=== PATIENT | female | born 1980 | race Caucasian/White ===

== ENCOUNTER 2025-05-30 12:35 | Emergency (ER) | payer OTHER, SELFPAY ==
[2025-05-30] VITALS (9 sets, daily range): BP systolic 126–189; BP diastolic 67–116; PULSE 62–103; RESP 12–24; TEMP 36.6–37.1; O2SAT 96–100; BMI 24.0
--- NOTE | 2025-05-30 12:55 | ED_ITS ---
<Statement entered by Mauri Rios MD - 05/31/25 04:20> I was consulted by the NIC, and we discussed the complexity of the problems being addressed. I approve the treatment and management plan for this patient's care in the emergency department, thus performing a substantive portion of the medical decision making. Mauri Rios MD Discharge Plan Disposition Patient Disposition: Home, Self-Care Condition: Good Referrals Follow up/Referrals: Provider,Referral, MD [Primary Care Provider, Medical] - See instructions Activity Restrictions/Add. Instructions Additional Instructions/Restrictions: You were evaluated on an emergency basis. It is very important that you follow- up with your primary care provider and any specialist who we discussed within the next 2 days in order to better assess your health more comprehensively. For example, incidental findings on imaging or laboratory results that were performed today may be discovered, which do not require immediate medical care, but may impact your health in the future. If your symptoms worsen or persist, please return to the emergency department immediately for reassessment. Take all medications as prescribed. In queue for allowing me to participate in your health care, and I hope you feel better soon. Clinical Impressions Clinical Impression: Manic behavior Print Language Print Language: Haitian Discharge ED Provider: Ari Taylor General Adult HPI <Brandy Cornelius - Last Filed: 05/30/25 16:50> General Chief complaint: Anxiety Stated complaint: Chest Pain Time Seen by Provider: 05/30/25 12:41 History of Present Illness HPI narrative: 44-year-old female presents the emergency department with multiple complaints. Patient reports that she recently moved back to this area from [place] and as she was unpacking today she was concerned that her shoes felt different. She states that she then noticed that she was having numbness and tingling in her bilateral upper and lower extremities. Was also experiencing mild chest pain. She reports that she has been prescribed Xanax in the past and admits that she has probably been overusing them and has run out over the past week. Related Data Allergies Allergy/AdvReac Type Severity Reaction Status Date / Time Antihistamines - Alkylamine Allergy Hives Verified 05/30/25 13:17 codeine Allergy Hives Verified 05/30/25 13:15 morphine Allergy Anaphylaxis Verified 05/30/25 13:16 PFSH <Brandy Cornelius - Last Filed: 05/30/25 16:50> [facility] Disclaimer: The information contained in this section may have been updated after the patient was seen, as this information can be updated by other users. Social History (Updated 05/30/25 @ 15:10 by Ari Taylor MD) Smoking Status: Former smoker alcohol intake: never current occupational status: other Travel in the last 8 weeks?: None Have you lived/traveled outside [place] in past 30 days?: No Contact w/someone who lives/traveled outside US past 30 days?: No Exposure to someone with infectious disease in past 14 days?: No Do you have a fever (greater than 100.4 F or 38 C)?: No Have you tested positive for COVID-19?: No Exposed to someone with COVID-19 in past 14 days?: No Do you have a sore throat?: No Do you have a cough?: No Do you have any weakness?: No Do you have any diarrhea?: No Are you experiencing any unusual bleeding?: No Do you have any muscle aches/pain?: No Do you have any abdominal pain?: No Are you experiencing loss of taste or smell?: No <Brandy Cornelius - Last Filed: 05/30/25 16:50> Cardiovascular Cardiovascular: Reports chest pain Musculoskeletal Musculoskeletal: Reports numbness and Reports tingling Neurologic Neurologic: Reports numbness and Reports tingling <Ari Taylor MD - Last Filed: 05/30/25 15:10> ROS Obtained: Yes Systems reviewed as appropriate & no additional complaints except as documented Physical Exam <Brandy Cornelius - Last Filed: 05/30/25 16:50> Narrative Physical exam: General: Awake, aware HEENT: Normocephalic, no evidence of trauma CV: RRR, no murmurs, rubs, or gallops Pulm: CTA bilaterally with no rhonchi, rales, wheezes ABD: Nontender, no swelling, guarding, or rebound tenderness Psychiatric Psychiatric exam: Present manic and other (Denies suicidal or homicidal ideation. Patient with flight of ideas and is difficult to carry on conversation with linear thought process.) <Ari Taylor MD - Last Filed: 05/30/25 15:10> General General appearance: alert Respiratory Respiratory exam: Absent respiratory distress Cardiovascular Cardiovascular exam: Present regular rate Neurological Exam Neurological exam: Present alert Medical Decision Making <Brandy Cornelius - Last Filed: 05/30/25 16:50> Medical Records Screening: Per USPSTF and CDC recommendations, given the prevalence of disease in our region, it is our hospital?s policy to screen for HIV and viral Hepatitis for all patients aged 18 and over and those with ongoing risk factors. Vital Signs: 05/30/25 12:54 05/30/25 13:00 05/30/25 13:30 Temperature 97.9 F Temperature Source Oral Pulse Rate 62 Pulse Rate [Right Radial] 103 H Respiratory Rate 19 21 Blood Pressure 167/110 H 149/105 H Blood Pressure [Right Arm] 189/116 H Blood Pressure Mean 119 Blood Pressure Mean [Right Arm] 140 Blood Pressure Source Blood Pressure Source [Right Arm] Automatic Cuff Blood Pressure Position Blood Pressure Position [Right Arm] Sitting 02 Sat by Pulse Oximetry 99 100 Oxygen Delivery Method Room Air 05/30/25 13:30 05/30/25 13:45 05/30/25 14:12 Temperature Temperature Source Pulse Rate 91 H 87 101 H Pulse Rate [Right Radial] Respiratory Rate 18 21 18 Blood Pressure 149/105 H 157/114 H Blood Pressure [Right Arm] Blood Pressure Mean 129 Blood Pressure Mean [Right Arm] Blood Pressure Source Blood Pressure Source [Right Arm] Blood Pressure Position Blood Pressure Position [Right Arm] 02 Sat by Pulse Oximetry 98 98 97 Oxygen Delivery Method 05/30/25 14:31 05/30/25 15:01 05/30/25 15:30 Temperature Temperature Source Pulse Rate 93 H 65 77 Pulse Rate [Right Radial] Respiratory Rate 24 13 12 Blood Pressure 147/116 H 148/92 H 126/87 Blood Pressure [Right Arm] Blood Pressure Mean 127 Blood Pressure Mean [Right Arm] Blood Pressure Source Blood Pressure Source [Right Arm] Blood Pressure Position Blood Pressure Position [Right Arm] 02 Sat by Pulse Oximetry 96 97 99 Oxygen Delivery Method 05/30/25 16:54 Temperature 98.8 F Temperature Source Oral Pulse Rate 64 Pulse Rate [Right Radial] Respiratory Rate 18 Blood Pressure 126/67 Blood Pressure [Right Arm] Blood Pressure Mean Blood Pressure Mean [Right Arm] Blood Pressure Source Automatic Cuff Blood Pressure Source [Right Arm] Blood Pressure Position Sitting Blood Pressure Position [Right Arm] 02 Sat by Pulse Oximetry Oxygen Delivery Method Room Air Lab Data Lab Results 05/30/25 13:00: WBC 7.5, RBC 4.91, Hgb 14.8, Hct 43.4, MCV 88.4, MCH 30.1, MCHC 34.1, RDW 13.3, Plt Count 326, MPV 10.1, Neut % (Auto) 65.7, Lymph % (Auto) 23.8, Lamb % (Auto) 8.5, Eos % (Auto) 1.3, Baso % (Auto) 0.4, Neut # (Auto) 5.0, Lymph # (Auto) 1.8, Lamb # (Auto) 0.6, Eos # (Auto) 0.1, Baso # (Auto) 0.0, D- Dimer 0.84 H, Sodium 140, Potassium 3.4 L, Chloride 104, Carbon Dioxide 24, A nion Gap 15.4 H, BUN 11, Creatinine 1.00, Estimated Creat Clear 76, Estimated GFR 60, Est GFR ( Amer) 73, Glucose 107 H, Calcium 10.4 H, Magnesium 1.9, Total Bilirubin 0.9, AST 45 H, ALT 25, Alkaline Phosphatase 91, Troponin I < 0.01, Total Protein 8.7 H, Albumin 5.2 H, Globulin 3.5 H, Albumin/Globulin Ratio 1.5, Lipase 69, HCG, Quant < 2 05/30/25 13:20: Urine Color Yellow, Urine Appearance Clear, Urine pH 8.0, Ur Specific [place] 1.010, Urine Protein Negative, Urine Glucose (UA) Negative, Urine Ketones Negative, Urine Blood Negative, Urine Nitrate Negative, Urine Bilirubin Negative, Urine Urobilinogen 1.0, Ur Leukocyte Esterase Negative, Urine RBC None, Urine WBC 5-10, Ur Squamous Epith Cells 10-20, Urine Bacteria 2+, Urine Opiates Screen Negative, Urine Methadone Screen Negative, Ur Barbituates Screen Negative, Ur Phencyclidine Scrn Negative, Ur Amphetamines Screen Negative, U Benzodiazepines Scrn Negative, Urine Cocaine Screen Negative, U Marijuana (THC) Screen Positive H 05/30/25 15:37: Troponin I < 0.01 05/30/25 13:00 05/30/25 13:00 Orders (Tests/Meds): ED MEDICATIONS Discontinued Medications Generic Name Dose Route Start Last Admin Trade Name Freq PRN Reason Stop Dose Admin Diazepam 5 mg 05/30/25 14:50 05/30/25 14:59 Diazepam 10mg/2ml Syringe IV 05/30/25 14:51 5 mg ONCE ONE Administration Sodium Chloride 1,000 mls @ 999 mls/hr 05/30/25 13:06 05/30/25 16:31 Sod Chlor 0.9% 1000ml Bag IV 05/30/25 14:06 Infused .Q1H1M ONE Infusion Iopamidol 80 ml 05/30/25 15:08 05/30/25 15:09 Iopamidol-370 (76%);100ml Bottle IV 05/30/25 15:09 80 ml ONCE ONE Administration Sodium Chloride 10 ml 05/30/25 15:08 05/30/25 15:08 Sodium Chloride 0.9% 10ml Syr (Rad Only) IV 05/30/25 15:09 10 ml ONCE ONE Administration Sodium Chloride 50 ml 05/30/25 15:08 05/30/25 15:08 0.9 % Sodium Chloride 50 Ml Vial IV 05/30/25 15:09 50 ml ONCE ONE Administration ORDERS Category Date Time Status CTA Chest [CT angio chest PE protocol] Stat Cat Scan 05/30/25 14:05 Completed XR chest portable Stat Exams 05/30/25 13:06 Completed CBC w/Auto Diff [Complete Blood Count Auto Diff] Stat Lab 05/30/25 13:00 Completed CMP [Comprehensive Metabolic Panel] Stat Lab 05/30/25 13:00 Completed D-Dimer Stat Lab 05/30/25 13:00 Completed Drug Screen,Urine Stat Lab 05/30/25 13:20 Completed HCG,Quantitative Stat Lab 05/30/25 13:00 Completed Lipase Stat Lab 05/30/25 13:00 Completed Magnesium Stat Lab 05/30/25 13:00 Completed Troponin I Q3H Lab 05/30/25 13:00 Completed Troponin I Q3H Lab 05/30/25 15:37 Completed Urinalysis and Microscopic Stat Lab 05/30/25 13:20 Completed Urine Culture Stat Micro 05/30/25 13:20 Received Medical Decision Narrative: Initial impression of presenting illness: 44-year-old female presents emergency department with multiple complaints. She reports that she recently moved back to this area from [place]. States that as she was unpacking today her shoes felt weird and then she noticed that she was having tingling to bilateral upper and lower extremities. She was also complaining of vague chest plain. Patient reports that she has been prescribed Xanax in the past and reports that she has been overusing them and has been out for the past week. She denies nausea, vomiting, diarrhea. He also denies fevers or shortness of breath Differential diagnosis includes but is not limited to: ACS, PE, electrolyte abnormality, substance abuse, mental health crisis Patient arrives hemodynamically stable, afebrile, without respiratory distress with vital signs interpreted by myself. Initial physical exam unremarkable. Patient with 5 out of 5 strength in all extremities. She is moving all extremities without difficulty. Sensation is intact. Patient appears manic during the exam and has flight of ideas. Patient denies suicidal homicidal ideations at this time. idea to idnitial diagnostic plan: ACS workup including D-dimer, urine drug screen, normal saline bolus Ari Taylor: I was consulted by the NIC, and we discussed the complexity of the problems being addressed. I approved the treatment and management plan for this patient's care in the emergency department, thus performing a substantive portion of the medical decision making. I agree with the initial workup and imaging of this patient, D-dimer elevated CT pending at time of transfer of care to the oncoming physician, Dr. Rios. Patient will require behavioral health follow-up on an outpatient basis and Valium will be given for anxiolysis to facilitate scan given her history of anxiety and Ativan shortage. Results from initial plan were reviewed and interpreted by myself, pertinent positives include: Patient's D-dimer was 0.84, rest of laboratory studies were nonactionable. Drug screen was positive for THC. Based off patient's elevated D-dimer CTA of chest was ordered. There is no evidence of PE at this time however they did note multiple bilateral nonobstructing kidney stones. Interventions in the ED: Patient was given normal saline bolus for hydration as well as 5 mg of IV Valium for her anxiety. Patient was made aware of the results and the findings, upon reevaluation patient has remained stable throughout stay, symptoms have resolved. Upon reevaluation patient is now resting comfortably in her room with no signs of acute distress. She is no longer manic and is calm and cooperative. Consultation/discussion with other physicians: Reviewed patient's presenting complaint and workup findings with both ED attending Brandon and Cristo Disposition: Reviewed finding today's workup with patient informed no acute abnormalities were noted. Again had detailed discussion with patient regarding my concerns that her symptoms are likely mental health related. Recommended she continue all previously prescribed medications and establish care with a primary care provider in this area for management of her chronic medical diagnoses as well as further evaluation of her mental health. Instructed her to return immediately to the emergency department any new or worsening symptoms specifically suicidal or homicidal ideation. Patient is agreeable to plan of care. Patient made aware of findings and had a detailed discussion with symptomatic care and return precautions, patient voiced understanding. <Ari Taylor MD - Last Filed: 05/30/25 15:10> [facility] Inquiry Pt receiving controlled substance: No Vital Signs: 05/30/25 12:54 05/30/25 13:00 05/30/25 13:30 Temperature 97.9 F Temperature Source Oral Pulse Rate 62 Pulse Rate [Right Radial] 103 H Respiratory Rate 19 21 Blood Pressure 167/110 H 149/105 H Blood Pressure [Right Arm] 189/116 H Blood Pressure Mean 119 Blood Pressure Mean [Right Arm] 140 Blood Pressure Source Blood Pressure Source [Right Arm] Automatic Cuff Blood Pressure Position Blood Pressure Position [Right Arm] Sitting 02 Sat by Pulse Oximetry 99 100 Oxygen Delivery Method Room Air 05/30/25 13:30 05/30/25 13:45 05/30/25 14:12 Temperature Temperature Source Pulse Rate 91 H 87 101 H Pulse Rate [Right Radial] Respiratory Rate 18 21 18 Blood Pressure 149/105 H 157/114 H Blood Pressure [Right Arm] Blood Pressure Mean 129 Blood Pressure Mean [Right Arm] Blood Pressure Source Blood Pressure Source [Right Arm] Blood Pressure Position Blood Pressure Position [Right Arm] 02 Sat by Pulse Oximetry 98 98 97 Oxygen Delivery Method 05/30/25 14:31 05/30/25 15:01 05/30/25 15:30 Temperature Temperature Source Pulse Rate 93 H 65 77 Pulse Rate [Right Radial] Respiratory Rate 24 13 12 Blood Pressure 147/116 H 148/92 H 126/87 Blood Pressure [Right Arm] Blood Pressure Mean 127 Blood Pressure Mean [Right Arm] Blood Pressure Source Blood Pressure Source [Right Arm] Blood Pressure Position Blood Pressure Position [Right Arm] 02 Sat by Pulse Oximetry 96 97 99 Oxygen Delivery Method 05/30/25 16:54 Temperature 98.8 F Temperature Source Oral Pulse Rate 64 Pulse Rate [Right Radial] Respiratory Rate 18 Blood Pressure 126/67 Blood Pressure [Right Arm] Blood Pressure Mean Blood Pressure Mean [Right Arm] Blood Pressure Source Automatic Cuff Blood Pressure Source [Right Arm] Blood Pressure Position Sitting Blood Pressure Position [Right Arm] 02 Sat by Pulse Oximetry Oxygen Delivery Method Room Air Lab Data Lab Results 05/30/25 13:00: WBC 7.5, RBC 4.91, Hgb 14.8, Hct 43.4, MCV 88.4, MCH 30.1, MCHC 34.1, RDW 13.3, Plt Count 326, MPV 10.1, Neut % (Auto) 65.7, Lymph % (Auto) 23.8, Lamb % (Auto) 8.5, Eos % (Auto) 1.3, Baso % (Auto) 0.4, Neut # (Auto) 5.0, Lymph # (Auto) 1.8, Lamb # (Auto) 0.6, Eos # (Auto) 0.1, Baso # (Auto) 0.0, D- Dimer 0.84 H, Sodium 140, Potassium 3.4 L, Chloride 104, Carbon Dioxide 24, A nion Gap 15.4 H, BUN 11, Creatinine 1.00, Estimated Creat Clear 76, Estimated GFR 60, Est GFR ( Amer) 73, Glucose 107 H, Calcium 10.4 H, Magnesium 1.9, Total Bilirubin 0.9, AST 45 H, ALT 25, Alkaline Phosphatase 91, Troponin I < 0.01, Total Protein 8.7 H, Albumin 5.2 H, Globulin 3.5 H, Albumin/Globulin Ratio 1.5, Lipase 69, HCG, Quant < 2 05/30/25 13:20: Urine Color Yellow, Urine Appearance Clear, Urine pH 8.0, Ur Specific [place] 1.010, Urine Protein Negative, Urine Glucose (UA) Negative, Urine Ketones Negative, Urine Blood Negative, Urine Nitrate Negative, Urine Bilirubin Negative, Urine Urobilinogen 1.0, Ur Leukocyte Esterase Negative, Urine RBC None, Urine WBC 5-10, Ur Squamous Epith Cells 10-20, Urine Bacteria 2+, Urine Opiates Screen Negative, Urine Methadone Screen Negative, Ur Barbituates Screen Negative, Ur Phencyclidine Scrn Negative, Ur Amphetamines Screen Negative, U Benzodiazepines Scrn Negative, Urine Cocaine Screen Negative, U Marijuana (THC) Screen Positive H 05/30/25 15:37: Troponin I < 0.01 Orders (Tests/Meds): ED MEDICATIONS Discontinued Medications Generic Name Dose Route Start Last Admin Trade Name Reshma PRN Reason Stop Dose Admin Diazepam 5 mg 05/30/25 14:50 05/30/25 14:59 Diazepam 10mg/2ml Syringe IV 05/30/25 14:51 5 mg ONCE ONE Administration Sodium Chloride 1,000 mls @ 999 mls/hr 05/30/25 13:06 05/30/25 16:31 Sod Chlor 0.9% 1000ml Bag IV 05/30/25 14:06 Infused .Q1H1M ONE Infusion Iopamidol 80 ml 05/30/25 15:08 05/30/25 15:09 Iopamidol-370 (76%);100ml Bottle IV 05/30/25 15:09 80 ml ONCE ONE Administration Sodium Chloride 10 ml 05/30/25 15:08 05/30/25 15:08 Sodium Chloride 0.9% 10ml Syr (Rad Only) IV 05/30/25 15:09 10 ml ONCE ONE Administration Sodium Chloride 50 ml 05/30/25 15:08 05/30/25 15:08 0.9 % Sodium Chloride 50 Ml Vial IV 05/30/25 15:09 50 ml ONCE ONE Administration ORDERS Category Date Time Status CTA Chest [CT angio chest PE protocol] Stat Cat Scan 05/30/25 14:05 Completed XR chest portable Stat Exams 05/30/25 13:06 Completed CBC w/Auto Diff [Complete Blood Count Auto Diff] Stat Lab 05/30/25 13:00 Completed CMP [Comprehensive Metabolic Panel] Stat Lab 05/30/25 13:00 Completed D-Dimer Stat Lab 05/30/25 13:00 Completed Drug Screen,Urine Stat Lab 05/30/25 13:20 Completed HCG,Quantitative Stat Lab 05/30/25 13:00 Completed Lipase Stat Lab 05/30/25 13:00 Completed Magnesium Stat Lab 05/30/25 13:00 Completed Troponin I Q3H Lab 05/30/25 13:00 Completed Troponin I Q3H Lab 05/30/25 15:37 Completed Urinalysis and Microscopic Stat Lab 05/30/25 13:20 Completed Urine Culture Stat Micro 05/30/25 13:20 Received ECG Data Tracing #1: Independently turd by me rate is 103, rhythm is regular, axis is normal, no ST elevation in anatomical contiguous leads, QTc 403. Medical Decision Narrative: Initial impression of presenting illness: 44-year-old female presents emergency department with multiple complaints. She reports that she recently moved back to this area from [place]. States that as she was unpacking today her shoes felt weird and then she noticed that she was having tingling to bilateral upper and lower extremities. She was also complaining of vague chest plain. Patient reports that she has been prescribed Xanax in the past and reports that she has been overusing them and has been out for the past week. She denies nausea, vomiting, diarrhea. He also denies fevers or shortness of breath Differential diagnosis includes but is not limited to: ACS, PE, electrolyte abnormality, substance abuse, mental health crisis Patient arrives hemodynamically stable, afebrile, without respiratory distress with vital signs interpreted by myself. Initial physical exam unremarkable. Patient with 5 out of 5 strength in all extremities. She is moving all extremities without difficulty. Sensation is intact. Patient appears manic during the exam and has flight of ideas. Patient denies suicidal homicidal ideations at this time. idea to idnitial diagnostic plan: ACS workup including D-dimer, urine drug screen, normal saline bolus Ari Taylor: I was consulted by the NIC, and we discussed the complexity of the problems being addressed. I approved the treatment and management plan for this patient's care in the emergency department, thus performing a substantive portion of the medical decision making. I agree with the initial workup and imaging of this patient, D-dimer elevated CT pending at time of transfer of care to the oncoming physician, Dr. Rios. Patient will require behavioral health follow-up on an outpatient basis and Valium will be given for anxiolysis to facilitate scan given her history of anxiety and Ativan shortage. <Mauri Rios MD - Last Filed: 05/31/25 03:53> Vital Signs: 05/30/25 12:54 05/30/25 13:00 05/30/25 13:30 Temperature 97.9 F Temperature Source Oral Pulse Rate 62 Pulse Rate [Right Radial] 103 H Respiratory Rate 19 21 Blood Pressure 167/110 H 149/105 H Blood Pressure [Right Arm] 189/116 H Blood Pressure Mean 119 Blood Pressure Mean [Right Arm] 140 Blood Pressure Source Blood Pressure Source [Right Arm] Automatic Cuff Blood Pressure Position Blood Pressure Position [Right Arm] Sitting 02 Sat by Pulse Oximetry 99 100 Oxygen Delivery Method Room Air 05/30/25 13:30 05/30/25 13:45 05/30/25 14:12 Temperature Temperature Source Pulse Rate 91 H 87 101 H Pulse Rate [Right Radial] Respiratory Rate 18 21 18 Blood Pressure 149/105 H 157/114 H Blood Pressure [Right Arm] Blood Pressure Mean 129 Blood Pressure Mean [Right Arm] Blood Pressure Source Blood Pressure Source [Right Arm] Blood Pressure Position Blood Pressure Position [Right Arm] 02 Sat by Pulse Oximetry 98 98 97 Oxygen Delivery Method 05/30/25 14:31 05/30/25 15:01 05/30/25 15:30 Temperature Temperature Source Pulse Rate 93 H 65 77 Pulse Rate [Right Radial] Respiratory Rate 24 13 12 Blood Pressure 147/116 H 148/92 H 126/87 Blood Pressure [Right Arm] Blood Pressure Mean 127 Blood Pressure Mean [Right Arm] Blood Pressure Source Blood Pressure Source [Right Arm] Blood Pressure Position Blood Pressure Position [Right Arm] 02 Sat by Pulse Oximetry 96 97 99 Oxygen Delivery Method 05/30/25 16:54 Temperature 98.8 F Temperature Source Oral Pulse Rate 64 Pulse Rate [Right Radial] Respiratory Rate 18 Blood Pressure 126/67 Blood Pressure [Right Arm] Blood Pressure Mean Blood Pressure Mean [Right Arm] Blood Pressure Source Automatic Cuff Blood Pressure Source [Right Arm] Blood Pressure Position Sitting Blood Pressure Position [Right Arm] 02 Sat by Pulse Oximetry Oxygen Delivery Method Room Air Lab Data Lab Results 05/30/25 13:00: WBC 7.5, RBC 4.91, Hgb 14.8, Hct 43.4, MCV 88.4, MCH 30.1, MCHC 34.1, RDW 13.3, Plt Count 326, MPV 10.1, Neut % (Auto) 65.7, Lymph % (Auto) 23.8, Lamb % (Auto) 8.5, Eos % (Auto) 1.3, Baso % (Auto) 0.4, Neut # (Auto) 5.0, Lymph # (Auto) 1.8, Lamb # (Auto) 0.6, Eos # (Auto) 0.1, Baso # (Auto) 0.0, D- Dimer 0.84 H, Sodium 140, Potassium 3.4 L, Chloride 104, Carbon Dioxide 24, A nion Gap 15.4 H, BUN 11, Creatinine 1.00, Estimated Creat Clear 76, Estimated GFR 60, Est GFR ( Amer) 73, Glucose 107 H, Calcium 10.4 H, Magnesium 1.9, Total Bilirubin 0.9, AST 45 H, ALT 25, Alkaline Phosphatase 91, Troponin I < 0.01, Total Protein 8.7 H, Albumin 5.2 H, Globulin 3.5 H, Albumin/Globulin Ratio 1.5, Lipase 69, HCG, Quant < 2 05/30/25 13:20: Urine Color Yellow, Urine Appearance Clear, Urine pH 8.0, Ur Specific [place] 1.010, Urine Protein Negative, Urine Glucose (UA) Negative, Urine Ketones Negative, Urine Blood Negative, Urine Nitrate Negative, Urine Bilirubin Negative, Urine Urobilinogen 1.0, Ur Leukocyte Esterase Negative, Urine RBC None, Urine WBC 5-10, Ur Squamous Epith Cells 10-20, Urine Bacteria 2+, Urine Opiates Screen Negative, Urine Methadone Screen Negative, Ur Barbituates Screen Negative, Ur Phencyclidine Scrn Negative, Ur Amphetamines Screen Negative, U Benzodiazepines Scrn Negative, Urine Cocaine Screen Negative, U Marijuana (THC) Screen Positive H 05/30/25 15:37: Troponin I < 0.01 Orders (Tests/Meds): ED MEDICATIONS Discontinued Medications Generic Name Dose Route Start Last Admin Trade Name Reshma PRN Reason Stop Dose Admin Diazepam 5 mg 05/30/25 14:50 05/30/25 14:59 Diazepam 10mg/2ml Syringe IV 05/30/25 14:51 5 mg ONCE ONE Administration Sodium Chloride 1,000 mls @ 999 mls/hr 05/30/25 13:06 05/30/25 16:31 Sod Chlor 0.9% 1000ml Bag IV 05/30/25 14:06 Infused .Q1H1M ONE Infusion Iopamidol 80 ml 05/30/25 15:08 05/30/25 15:09 Iopamidol-370 (76%);100ml Bottle IV 05/30/25 15:09 80 ml ONCE ONE Administration Sodium Chloride 10 ml 05/30/25 15:08 05/30/25 15:08 Sodium Chloride 0.9% 10ml Syr (Rad Only) IV 05/30/25 15:09 10 ml ONCE ONE Administration Sodium Chloride 50 ml 05/30/25 15:08 05/30/25 15:08 0.9 % Sodium Chloride 50 Ml Vial IV 05/30/25 15:09 50 ml ONCE ONE Administration ORDERS Category Date Time Status CTA Chest [CT angio chest PE protocol] Stat Cat Scan 05/30/25 14:05 Completed XR chest portable Stat Exams 05/30/25 13:06 Completed CBC w/Auto Diff [Complete Blood Count Auto Diff] Stat Lab 05/30/25 13:00 Completed CMP [Comprehensive Metabolic Panel] Stat Lab 05/30/25 13:00 Completed D-Dimer Stat Lab 05/30/25 13:00 Completed Drug Screen,Urine Stat Lab 05/30/25 13:20 Completed HCG,Quantitative Stat Lab 05/30/25 13:00 Completed Lipase Stat Lab 05/30/25 13:00 Completed Magnesium Stat Lab 05/30/25 13:00 Completed Troponin I Q3H Lab 05/30/25 13:00 Completed Troponin I Q3H Lab 05/30/25 15:37 Completed Urinalysis and Microscopic Stat Lab 05/30/25 13:20 Completed Urine Culture Stat Micro 05/30/25 13:20 Received Medical Decision Narrative: Initial impression of presenting illness: 44-year-old female presents emergency department with multiple complaints. She reports that she recently moved back to this area from [place]. States that as she was unpacking today her shoes felt weird and then she noticed that she was having tingling to bilateral upper and lower extremities. She was also complaining of vague chest plain. Patient reports that she has been prescribed Xanax in the past and reports that she has been overusing them and has been out for the past week. She denies nausea, vomiting, diarrhea. He also denies fevers or shortness of breath Differential diagnosis includes but is not limited to: ACS, PE, electrolyte abnormality, substance abuse, mental health crisis Patient arrives hemodynamically stable, afebrile, without respiratory distress with vital signs interpreted by myself. Initial physical exam unremarkable. Patient with 5 out of 5 strength in all extremities. She is moving all extremities without difficulty. Sensation is intact. Patient appears manic during the exam and has flight of ideas. Patient denies suicidal homicidal ideations at this time. idea to idnitial diagnostic plan: ACS workup including D-dimer, urine drug screen, normal saline bolus Ari Taylor: I was consulted by the NIC, and we discussed the complexity of the problems being addressed. I approved the treatment and management plan for this patient's care in the emergency department, thus performing a substantive portion of the medical decision making. I agree with the initial workup and imaging of this patient, D-dimer elevated CT pending at time of transfer of care to the oncoming physician, Dr. Rios. Patient will require behavioral health follow-up on an outpatient basis and Valium will be given for anxiolysis to facilitate scan given her history of anxiety and Ativan shortage. Results from initial plan were reviewed and interpreted by myself, pertinent positives include: Patient's D-dimer was 0.84, rest of laboratory studies were nonactionable. Drug screen was positive for THC. Based off patient's elevated D-dimer CTA of chest was ordered. There is no evidence of PE at this time however they did note multiple bilateral nonobstructing kidney stones. Interventions in the ED: Patient was given normal saline bolus for hydration as well as 5 mg of IV Valium for her anxiety. Patient was made aware of the results and the findings, upon reevaluation patient has remained stable throughout stay, symptoms have resolved. Upon reevaluation patient is now resting comfortably in her room with no signs of acute distress. She is no longer manic and is calm and cooperative. Consultation/discussion with other physicians: Reviewed patient's presenting complaint and workup findings with both ED attending Brandon and Blanca Disposition: Reviewed finding today's workup with patient informed no acute abnormalities were noted. Again had detailed discussion with patient regarding my concerns that her symptoms are likely mental health related. Recommended she continue all previously prescribed medications and establish care with a primary care provider in this area for management of her chronic medical diagnoses as well as further evaluation of her mental health. Instructed her to return immediately to the emergency department any new or worsening symptoms specifically suicidal or homicidal ideation. Patient is agreeable to plan of care. Patient made aware of findings and had a detailed discussion with symptomatic care and return precautions, patient voiced understanding. Critical Care <Ari Taylor MD - Last Filed: 05/30/25 15:10> Critical Care Time Critical Care Time: No
--- NOTE | 2025-05-30 13:06 | XR_ITS ---
FINAL REPORT CLINICAL HISTORY: CP COMPARISON: None FINDINGS: The heart size is normal. The mediastinum is normal. There is no focal infiltrate or edema. There are no pleural effusions. There is no pneumothorax. There is no osseous abnormality. IMPRESSION: No acute cardiopulmonary process Reviewed, Interpreted and Dictated by Sree Walton MD Transcribed by Cristel Gonsales Authenticated and [facility]
[2025-05-30 13:16] LABS: Hematocrit 43.4 % (37.0-47.0); Hemoglobin 14.8 g/dL (12.2-16.2); Immature Granulocytes % 0.3 %; Mean Corpuscular HGB Conc 34.1 g/dL (31.8-35.4); Mean Corpuscular Hemoglobin 30.1 pg (27.0-31.2); Mean Corpuscular Volume 88.4 fl (81-99); Nucleated Red Blood Cells % 0 %; Platelet Count 326 K/mm3 (142-424); Red Blood Count 4.91 M/mm3 (4.20-5.40); Red Cell Distribution Width-SD 43.3 fL; White Blood Count 7.5 K/mm3 (4.8-10.8)
[2025-05-30 13:20] LABS: Albumin Level 5.2 g/dl (3.5-5.0); Chloride 104 mmol/L (98-107); Potassium 3.4 mmoL/L (3.5-5.1); Sodium 140 mmol/L (136-145)
[2025-05-30 13:23] LABS: Microscopic, Urine URINE MICROSCOPIC (MICROSCOPIC)
[2025-05-30 13:23] LABS: Alanine Aminotransferase 25 U/L (12-78); Albumin/Globulin Ratio 1.5 (1.1-1.8); Alkaline Phosphatase 91 U/L (38-126); Anion Gap 15.4 mEq/L (5-15); Aspartate Amino Transferase 45 U/L (14-36); Bilirubin,Total 0.9 mg/dl (0.2-1.3); Blood Urea Nitrogen 11 mg/dl (7-17); Calcium 10.4 mg/dl (8.4-10.2); Carbon Dioxide 24 mmol/L (22.0-30.0); Creatinine Clearance Estimated 76 mL/min (50-200); Creatinine,Serum 1.00 mg/dl (0.52-1.04); Estimated Glomerular Filt Rate 60 ml/min (>60); GFR (African American) 73 ML/MIN (>60); Globulin 3.5 g/dL (1.3-3.2); Glucose 107 mg/dl (74-100); Lipase 69 U/L (23-300); Total Protein,Serum 8.7 g/dl (6.3-8.2)
[2025-05-30 13:24] LABS: Magnesium 1.9 mg/dl (1.6-2.3)
[2025-05-30 13:26] LABS: Bilirubin,Urine Negative (Negative); Color,Urine YELLOW (Yellow); Glucose,Urine (UA) Negative (Negative); Ketones,Urine Negative (Negative); Leukocyte Esterase,Urine Negative (Negative); PH,Urine 8.0 (5.0-8.5); Protein,Urine Negative (Negative); Specific Gravity, Urine 1.010 (1.005-1.030); Urobilinogen,Urine 1.0 EU/dl (0.2)
[2025-05-30 13:47] LABS: D-Dimer 0.84 ug/mL (0.0-0.5)
[2025-05-30] MEDS: 0.9 % SODIUM CHLORIDE 1000ML 1,000 ML 999 ML IV (13:50)
--- NOTE | 2025-05-30 14:05 | CT_ITS ---
FINAL REPORT TECHNIQUE: The patient was injected with IV contrast. Axial images were obtained through the chest in a PE protocol. 3-D reconstruction images were also performed. Individualized dose reduction techniques using automated exposure control or adjustment of the MA and/or KV according to patient's size were employed. CLINICAL HISTORY: cp, elevated d dimer COMPARISON: None FINDINGS: Mediastinal vasculature is adequately opacified. No pulmonary artery filling defects are identified to suggest PE. There is no aortic dissection. There is no axillary adenopathy. There is no hilar or mediastinal adenopathy. The heart size is normal. There is no pericardial or pleural effusion. Limited images of the upper abdomen are unremarkable. The gallbladder has been surgically resected. There are multiple nonobstructing bilateral renal stones measuring up to 5 mm in size. No suspicious infiltrate or nodule is identified. IMPRESSION: No pulmonary embolus or dissection. Multiple bilateral nonobstructing renal stones are noted, measuring up to 5 mm in size. Reviewed, Interpreted and Dictated by Sree Walton MD Transcribed by Cristel Gonsales Authenticated and [facility]
[2025-05-30 14:08] LABS: Bacteria,Urine 2+ /lpf
--- NOTE | 2025-05-30 14:50 | PC.NURSE ---
I called lab to check on pts initial troponin results. I spoke to Jourdan who states its resulting now.
[2025-05-30 14:53] LABS: Troponin I < 0.01 ng/ml (0.00-0.034)
[2025-05-30] MEDS: diazePAM 10MG/2ML SYRINGE 5 MG IV (14:59)
[2025-05-30] MEDS: 0.9 % SODIUM CHLORIDE 50 ML VIAL IV (15:08)
[2025-05-30] MEDS: SODIUM CHLORIDE 0.9% 10ML SYR (RAD ONLY) 10 ML IV (15:08)
[2025-05-30] MEDS: IOPAMIDOL-370 (76%);100ML BOTTLE 80 ML IV (15:09)
[2025-05-30 15:25] LABS: Barbiturates Screen,Urine Negative ng/ml (<200)
[2025-05-30 15:26] LABS: Amphetamine/Metha Screen,Urine Negative ng/ml (<1000); Benzodiazepines Screen,Urine Negative ng/ml (<200)
[2025-05-30 15:28] LABS: Methadone Screen,Urine Negative ng/ml (<300)
[2025-05-30 15:29] LABS: Opiate Screen,Urine Negative ng/ml (<300)
[2025-05-30 15:30] LABS: Phencyclidine Screen,Urine Negative ng/ml (<25)
[2025-05-30 16:09] LABS: Troponin I < 0.01 ng/ml (0.00-0.034)
== END 2025-05-30 16:58 | disposition home or self-care (01) ==
PROVIDERS: Nurse Practitioner Family; Emergency Provider Emergency Medicine
DX: R07.89 Other chest pain (principal); F30.10 Manic episode without psychotic symptoms, unspecified; F41.1 Generalized anxiety disorder; N20.0 Calculus of kidney; F12.90 Cannabis use, unspecified, uncomplicated
CPT/HCPCS: 71045; 71275; 80053; 80307; 81001; 83690; 83735; 84484; 84702; 85025; 85378; 87086; 93005; 96361; 96374; 99285; J3360; J7030; Q9967